=== PATIENT | female | born 1980 | race Caucasian/White ===

== ENCOUNTER 2017-10-17 12:09 | Observation (INO) | payer OTHER ==
[2017-10-17] MEDS ORDERED: NIFEdipine 10 MG Cap PO ONE (14:00)
[2017-10-17] MEDS ORDERED: Azithromycin 250 MG Tab PO ONE (15:30)
[2017-10-17] MEDS ORDERED: Ampicillin 2 GM in Sodium Chloride 0.9% 100 ML IV ONE (15:30)
[2017-10-17] MEDS: Lactated Ringers 1,000 ML IV SCH (15:34)
[2017-10-17] MEDS: Magnesium Sulfate/Water 40 GM/1,000 ML BAG IV SCH (16:17)
--- NOTE | 2017-10-17 17:16 | PCM.LDHP ---
L&D History of Present Illness - General Date of Service: 10/17/17 (high blood pressure) Admit Problem/Dx: Patient Status Order with Admit Dx/Problem 10/17/17 15:14 Patient Status [ADT] Routine Admission Diagnosis/Problem Admission Diagnosis/Problem Hypertension Source of Information: Patient History Limitations: Reports: No Limitations - History of Present Illness Introduction:: This 37 year old presents for swelling and high blood pressure. She was told by Omari Gross to come here. She is 34 3/7 weeks gestation with GDM, hypertension and advanced maternal age. Timing/Duration: Reports: minutes: (4 minutes) Location, : Reports: Other (doesn't feel most of them, has been henna for weeks) Improves with: Reports: None Worsens with: Reports: None - Related Data Allergies/Adverse Reactions: Allergies Allergy/AdvReac Type Severity Reaction Status Date / Time No Known Allergies Allergy Verified 11/02/15 08:47 Home Medications: Home Meds Cetirizine [ZyrTEC] 10 mg PO DAILY 09/26/17 [History] Levothyroxine [Synthroid] 50 mcg PO ACBREAKFAST 09/26/17 [History] Pnv with Ca,No.72/Iron/Fa [Pnv Plus Multivit Tab] 1 tab-cap PO DAILY [History] Ranitidine [Zantac] 150 mg PO DAILY 09/26/17 [History] NIFEdipine [Procardia] 10 mg PO TID 10/13/17 [History] glyBURIDE [Glyburide] 2.5 mg PO BID 10/13/17 [History] Past Medical History : 3 Para: 1 LMP (Approximate): (11/24/17) H&P Review of Systems - Review of Systems: Review Of Systems: See Below General: Reports: Fatigue, Weight Gain HEENT: Reports: No Symptoms Pulmonary: Reports: No Symptoms Cardiovascular: Reports: No Symptoms Gastrointestinal: Reports: No Symptoms Genitourinary: Reports: No Symptoms Musculoskeletal: Reports: No Symptoms Skin: Reports: No Symptoms Psychiatric: Reports: No Symptoms Neurological: Reports: No Symptoms Hematologic/Lymphatic: Reports: No Symptoms Immunologic: Reports: No Symptoms L&D Exam - Exam Exam: See Below - Vital Signs Vital Signs: Last Vital Signs Temp 97.6 F 10/17/17 12:25 Pulse 73 10/17/17 13:40 Resp 16 10/17/17 12:37 BP 171/100 H 10/17/17 14:07 Pulse Ox 96 10/17/17 13:10 - OB Specific Contraction Intensity: Mild Movement: Active Heart Tones: Present Heart Tones per Min: 150 Heart Rate (FHR) Variability: Moderate (6-25 bmp) (initial FHT pattern showed accelerations, cat 1 strip) Presentation: Vertex - Young Score Young Score Cervix Position: Anterior Young Score Consistency: Medium Young Score Effacement: 31-50% Young Score Dilation: 1-2 cm Young Score Infant's Station: -1 ,0 Young Score Total: 7 - Exam Quality Assessment: DVT Prophylaxis General: Alert, Oriented HEENT: PERRLA, Conjunctiva Clear, Hearing Intact, Mucosa Moist & [place], Posterior Pharynx Clear Neck: Supple Lungs: Clear to Auscultation, Normal Respiratory Effort Cardiovascular: Regular Rate, Regular Rhythm GI/Abdominal Exam: Normal Bowel Sounds, Soft Rectal Exam: Normal Exam Genitourinary: Cervical dilitation, Enlarged uterus Back Exam: Normal Inspection Extremities: Normal Inspection, Other (2 plus pitting edema to her thighs) Skin: Warm Neurological: Cranial Nerves Intact, Strength Equal Bilateral, Normal Tone Psychiatric: Alert, Normal Affect, Normal Mood - Patient Data Lab Results Last 24 hrs: Laboratory Results - last 24 hr 10/17/17 10/17/17 10/17/17 Range/Units 12:32 13:55 13:55 WBC 11.3 H (4.5-11.0) K/uL RBC 4.84 (3.30-5.50) M/uL Hgb 14.4 (12.0-15.0) g/dL Hct 41.8 (36.0-48.0) % MCV 86 (80-98) fL MCH 30 (27-31) pg MCHC 34 (32-36) % Plt Count 291 (150-400) K/uL Sodium 138 L (140-148) mmol/L Potassium 3.8 (3.6-5.2) mmol/L Chloride 106 (100-108) mmol/L Carbon Dioxide 20 L (21-32) mmol/L Anion Gap 15.8 H (5.0-14.0) mmol/L BUN 10 (7-18) mg/dL Creatinine 0.7 (0.6-1.0) mg/dL Est Cr Clr Drug Dosing TNP Estimated GFR (MDRD) > 60 (>60) Glucose 72 L (74-106) mg/dL Uric Acid 6.5 H (2.6-6.2) mg/dL Calcium 8.8 (8.5-10.1) mg/dL Total Bilirubin 0.1 L (0.2-1.0) mg/dL AST 18 (15-37) U/L ALT 18 (12-78) U/L Alkaline Phosphatase 140 H (46-116) U/L Lactate Dehydrogenase (82-234) U/L Total Protein 6.6 (6.4-8.2) g/dL Albumin 2.2 L (3.4-5.0) g/dL Globulin 4.4 H (2.3-3.5) g/dL Albumin/Globulin Ratio 0.5 L (1.2-2.2) LDL Cholesterol Direct 121 H (0-100) mg/dL Urine Color Yellow Urine Appearance Slightly cloudy Urine pH 6.5 (4.5-8.0) Ur Specific [place] 1.005 L (1.008-1.030) Urine Protein 30 H (NEGATIVE) mg/dL Urine Glucose (UA) Normal (NEGATIVE) mg/dL Urine Ketones Negative (NEGATIVE) mg/dL Urine Occult Blood Negative (NEGATIVE) Urine Nitrite Negative (NEGATIVE) Urine Bilirubin Negative (NEGATIVE) Urine Urobilinogen Normal (NORMAL) mg/dL Ur Leukocyte Esterase Negative (NEGATIVE) Urine RBC 0-5 (0-5) Urine WBC Not seen (0-5) Ur Epithelial Cells Rare Amorphous Sediment Not seen Urine Bacteria Rare Urine Mucus Not seen 10/17/17 Range/Units 14:57 WBC (4.5-11.0) K/uL RBC (3.30-5.50) M/uL Hgb (12.0-15.0) g/dL Hct (36.0-48.0) % MCV (80-98) fL MCH (27-31) pg MCHC (32-36) % Plt Count (150-400) K/uL Sodium (140-148) mmol/L Potassium (3.6-5.2) mmol/L Chloride (100-108) mmol/L Carbon Dioxide (21-32) mmol/L Anion Gap (5.0-14.0) mmol/L BUN (7-18) mg/dL Creatinine (0.6-1.0) mg/dL Est Cr Clr Drug Dosing Estimated GFR (MDRD) (>60) Glucose (74-106) mg/dL Uric Acid (2.6-6.2) mg/dL Calcium (8.5-10.1) mg/dL Total Bilirubin (0.2-1.0) mg/dL AST (15-37) U/L ALT (12-78) U/L Alkaline Phosphatase (46-116) U/L Lactate Dehydrogenase 186 (82-234) U/L Total Protein (6.4-8.2) g/dL Albumin (3.4-5.0) g/dL Globulin (2.3-3.5) g/dL Albumin/Globulin Ratio (1.2-2.2) LDL Cholesterol Direct (0-100) mg/dL Urine Color Urine Appearance Urine pH (4.5-8.0) Ur Specific [place] (1.008-1.030) Urine Protein (NEGATIVE) mg/dL Urine Glucose (UA) (NEGATIVE) mg/dL Urine Ketones (NEGATIVE) mg/dL Urine Occult Blood (NEGATIVE) Urine Nitrite (NEGATIVE) Urine Bilirubin (NEGATIVE) Urine Urobilinogen (NORMAL) mg/dL Ur Leukocyte Esterase (NEGATIVE) Urine RBC (0-5) Urine WBC (0-5) Ur Epithelial Cells Amorphous Sediment Urine Bacteria Urine Mucus Result Diagrams: 10/17/17 13:55 10/17/17 13:55 - Problem List (1) uterine contractions in third trimester, antepartum SNOMED Code(s): 695691130 ICD Code: O47.03 - FALSE LABOR BEFORE 37 COMPLETED WEEKS OF GEST, THIRD TRI Status: Acute Priority: High Current Visit: Yes (2) Gestational diabetes SNOMED Code(s): 55965722 ICD Code: O24.419 - GESTATIONAL DIABETES MELLITUS IN , UNSP CONTROL Status: Acute Current Visit: Yes Qualifiers: Gestational diabetes mellitus control: unspecified Trimester: third trimester Qualified Code(s): O24.419 - Gestational diabetes mellitus in , unspecified control (3) Hypertension affecting in third trimester SNOMED Code(s): 908457192 ICD Code: O16.3 - UNSPECIFIED MATERNAL HYPERTENSION, THIRD TRIMESTER Status : Acute Priority: High Current Visit: Yes Problem List Initiated/Reviewed/Updated: Yes Orders Last 24hrs: Active Orders 24 hr Category Date Time Status Patient Status [ADT] Routine ADT 10/17/17 15:14 Active Communication Order [RC] Per Unit Routine Care 10/17/17 15:16 Active Notify Provider [RC] PRN Care 10/17/17 15:14 Active OB Check [OM.PC] Click to Edit Care 10/17/17 12:32 Ordered Vital Signs [RC] PER UNIT ROUTINE Care 10/17/17 15:14 Active Consistent Carbohydrate Diet [DIET] Diet 10/17/17 Dinner Active Sodium Restricted Diet [DIET] Diet 10/17/17 Dinner Active BPP wo NST [US] Routine Exams 10/18/17 07:00 Ordered BPP wo NST [US] Urgent Exams 10/17/17 13:44 Taken CBC WITH AUTO DIFF [HEME] AM Lab 10/18/17 05:11 Ordered COMPREHENSIVE METABOLIC PN,CMP [CHEM] AM Lab 10/18/17 05:11 Ordered CREATININE,URINE 24 HR [REF] Routine Lab 10/17/17 13:30 Ordered GLUCOSE POC LAB TO COLLECT [POC] QIDACANDBED Lab 10/17/17 21:00 Ordered GLUCOSE POC LAB TO COLLECT [POC] QIDACANDBED Lab 10/18/17 07:30 Ordered GLUCOSE POC LAB TO COLLECT [POC] QIDACANDBED Lab 10/18/17 11:30 Ordered GLUCOSE POC LAB TO COLLECT [POC] QIDACANDBED Lab 10/18/17 16:30 Ordered GLUCOSE POC LAB TO COLLECT [POC] Stat Lab 10/17/17 16:47 Ordered Ampicillin 1 gm Med 10/17/17 19:30 Active Sodium Chloride 0.9% [Normal Saline] 50 ml IV Q4H Lactated Ringers [Ringers, Lactated] 1,000 ml Med 10/17/17 15:30 Active IV ASDIRECTED Magnesium Sulfate/Water [Magnesium Sulfate 40 GM in Med 10/17/17 15:30 Active Water 1000 ML] 40 gm in 1,000 ml IV .CONTINUOUS NIFEdipine [Procardia] Med 10/17/17 20:00 Active 20 mg PO Q6H Deep Tendon Reflexes [WOMSER] Per Unit Routine Oth 10/17/17 15:16 Ordered Resuscitation Status Routine Resus Stat 10/17/17 15:14 Ordered Medication Orders Ampicillin Sodium 1 gm/ Sodium (Chloride) 50 mls @ 100 mls/hr IV Q4H ROBE Stop: 10/19/17 15:59 Lactated Ringer's (Ringers, Lactated) 1,000 mls @ 125 mls/hr IV ASDIRECTED ROBE Last Admin: 10/17/17 15:34 Dose: 125 mls/hr Magnesium Sulfate (Magnesium Sulfate 40 Gm In Water 1000 Ml) 40 gm in 1,000 mls @ 50 mls/hr IV .CONTINUOUS ROBE PRN Reason: 2 GM/HR Last Admin: 10/17/17 16:17 Dose: 2 gm/hr, 50 mls/hr Nifedipine (Procardia) 20 mg PO Q6H ROBE Assessment/Plan Comment:: 10/17/17 contractions: fluids, Radha normal BPP 6/10 no tone or movement during US. CE dilation 1 cm. Will try to slow these and present cervical change. repeat US with cervical length in AM Getting Nifidepine, increased to dose to 20 mg every 6 hours for both contractions and blood pressure. Hypertension 177/104, no symptoms other then 12 pound weight gain and edema, which brought her in today. Labs today negative for Hellp syndrome. 24 hour urine for protein started at 1230 today. She had a small amount of protein which has been there for several weeks. covering with mag sulfate 4 gm bolus and 2 gm drip covered for GBS and other organisms as well, Ampicillin and Zithromycin. GDM well controlled continue same with Glyburide 2.5 mg BID Found GBS from 09/27/17 and was negative, will stop antibiotics tomorrow repeat CBC, CMP in am finish 24 hour urine US with cerivcal length in am
[2017-10-17] MEDS ORDERED: Zolpidem 5 MG Tab PO ONE ×2 (17:47→21:00)
[2017-10-17] MEDS: NIFEdipine 10 MG Cap PO SCH (20:04)
[2017-10-17] MEDS: Ampicillin 1 GM in Sodium Chloride 0.9% 50 ML IV SCH ×2 (20:04→23:03)
[2017-10-18] MEDS: Lactated Ringers 1,000 ML IV SCH ×2 (01:05→09:42)
[2017-10-18] MEDS: Acetaminophen 500 MG Tab PO PRN ×2 (01:19→06:51)
[2017-10-18] MEDS: NIFEdipine 10 MG Cap PO SCH ×2 (02:05→08:12)
[2017-10-18] MEDS: Ampicillin 1 GM in Sodium Chloride 0.9% 50 ML IV SCH ×2 (04:07→07:57)
--- NOTE | 2017-10-18 08:36 | PCM.PN ---
- General Info Date of Service: 10/18/17 (hypertension) Admission Dx/Problem (Free Text): Patient Status Order with Admit Dx/Problem 10/17/17 15:14 Patient Status [ADT] Routine Admission Diagnosis/Problem Admission Diagnosis/Problem Hypertension Functional Status: Reports: Pain Controlled - Review of Systems General: Reports: Fatigue HEENT: Reports: Headaches Pulmonary: Reports: No Symptoms Cardiovascular: Reports: Edema (legs to thighs and arms, not as swollen as yesterday) Gastrointestinal: Reports: Other (heartburn) Genitourinary: Reports: No Symptoms Musculoskeletal: Reports: No Symptoms Skin: Reports: No Symptoms Neurological: Reports: No Symptoms Psychiatric: Reports: No Symptoms - Patient Data Vitals - Most Recent: Last Vital Signs Temp 97.2 F 10/18/17 07:50 Pulse 85 10/18/17 08:00 Resp 16 10/18/17 08:00 BP 146/92 H 10/18/17 08:12 Pulse Ox 99 10/18/17 08:00 Weight - Most Recent: 236 lb I&O - Last 24 Hours: Intake & Output 10/17/17 10/18/17 10/18/17 22:59 06:59 14:59 Intake Total 1200 1640 2253 Output Total 2350 1600 900 Balance -1150 40 1353 Lab Results Last 24 Hours: Laboratory Results - last 24 hr 10/17/17 10/17/17 10/17/17 Range/Units 12:32 13:55 13:55 WBC 11.3 H (4.5-11.0) K/uL RBC 4.84 (3.30-5.50) M/uL Hgb 14.4 (12.0-15.0) g/dL Hct 41.8 (36.0-48.0) % MCV 86 (80-98) fL MCH 30 (27-31) pg MCHC 34 (32-36) % Plt Count 291 (150-400) K/uL Neut % (Auto) (36-66) % Lymph % (Auto) (24-44) % [place] % (Auto) (2-6) % Eos % (Auto) (2-4) % Baso % (Auto) (0-1) % Sodium 138 L (140-148) mmol/L Potassium 3.8 (3.6-5.2) mmol/L Chloride 106 (100-108) mmol/L Carbon Dioxide 20 L (21-32) mmol/L Anion Gap 15.8 H (5.0-14.0) mmol/L BUN 10 (7-18) mg/dL Creatinine 0.7 (0.6-1.0) mg/dL Est Cr Clr Drug Dosing TNP Estimated GFR (MDRD) > 60 (>60) Glucose 72 L (74-106) mg/dL Uric Acid 6.5 H (2.6-6.2) mg/dL Calcium 8.8 (8.5-10.1) mg/dL Magnesium (1.8-2.4) mg/dL Total Bilirubin 0.1 L (0.2-1.0) mg/dL AST 18 (15-37) U/L ALT 18 (12-78) U/L Alkaline Phosphatase 140 H (46-116) U/L Lactate Dehydrogenase (82-234) U/L Total Protein 6.6 (6.4-8.2) g/dL Albumin 2.2 L (3.4-5.0) g/dL Globulin 4.4 H (2.3-3.5) g/dL Albumin/Globulin Ratio 0.5 L (1.2-2.2) LDL Cholesterol Direct 121 H (0-100) mg/dL Urine Color Yellow Urine Appearance Slightly cloudy Urine pH 6.5 (4.5-8.0) Ur Specific [place] 1.005 L (1.008-1.030) Urine Protein 30 H (NEGATIVE) mg/dL Urine Glucose (UA) Normal (NEGATIVE) mg/dL Urine Ketones Negative (NEGATIVE) mg/dL Urine Occult Blood Negative (NEGATIVE) Urine Nitrite Negative (NEGATIVE) Urine Bilirubin Negative (NEGATIVE) Urine Urobilinogen Normal (NORMAL) mg/dL Ur Leukocyte Esterase Negative (NEGATIVE) Urine RBC 0-5 (0-5) Urine WBC Not seen (0-5) Ur Epithelial Cells Rare Amorphous Sediment Not seen Urine Bacteria Rare Urine Mucus Not seen 10/17/17 10/17/17 10/17/17 Range/Units 14:57 17:51 20:57 WBC (4.5-11.0) K/uL RBC (3.30-5.50) M/uL Hgb (12.0-15.0) g/dL Hct (36.0-48.0) % MCV (80-98) fL MCH (27-31) pg MCHC (32-36) % Plt Count (150-400) K/uL Neut % (Auto) (36-66) % Lymph % (Auto) (24-44) % [place] % (Auto) (2-6) % Eos % (Auto) (2-4) % Baso % (Auto) (0-1) % Sodium (140-148) mmol/L Potassium (3.6-5.2) mmol/L Chloride (100-108) mmol/L Carbon Dioxide (21-32) mmol/L Anion Gap (5.0-14.0) mmol/L BUN (7-18) mg/dL Creatinine (0.6-1.0) mg/dL Est Cr Clr Drug Dosing Estimated GFR (MDRD) (>60) Glucose (74-106) mg/dL Uric Acid (2.6-6.2) mg/dL Calcium (8.5-10.1) mg/dL Magnesium 1.7 L 4.2 H D (1.8-2.4) mg/dL Total Bilirubin (0.2-1.0) mg/dL AST (15-37) U/L ALT (12-78) U/L Alkaline Phosphatase (46-116) U/L Lactate Dehydrogenase 186 (82-234) U/L Total Protein (6.4-8.2) g/dL Albumin (3.4-5.0) g/dL Globulin (2.3-3.5) g/dL Albumin/Globulin Ratio (1.2-2.2) LDL Cholesterol Direct (0-100) mg/dL Urine Color Urine Appearance Urine pH (4.5-8.0) Ur Specific [place] (1.008-1.030) Urine Protein (NEGATIVE) mg/dL Urine Glucose (UA) (NEGATIVE) mg/dL Urine Ketones (NEGATIVE) mg/dL Urine Occult Blood (NEGATIVE) Urine Nitrite (NEGATIVE) Urine Bilirubin (NEGATIVE) Urine Urobilinogen (NORMAL) mg/dL Ur Leukocyte Esterase (NEGATIVE) Urine RBC (0-5) Urine WBC (0-5) Ur Epithelial Cells Amorphous Sediment Urine Bacteria Urine Mucus 10/18/17 10/18/17 10/18/17 Range/Units 00:15 04:20 05:55 WBC 10.1 (4.5-11.0) K/uL RBC 4.27 (3.30-5.50) M/uL Hgb 12.7 (12.0-15.0) g/dL Hct 37.3 (36.0-48.0) % MCV 87 (80-98) fL MCH 30 (27-31) pg MCHC 34 (32-36) % Plt Count 238 (150-400) K/uL Neut % (Auto) 77 H (36-66) % Lymph % (Auto) 16 L (24-44) % [place] % (Auto) 6 (2-6) % Eos % (Auto) 0 L (2-4) % Baso % (Auto) 0 (0-1) % Sodium (140-148) mmol/L Potassium (3.6-5.2) mmol/L Chloride (100-108) mmol/L Carbon Dioxide (21-32) mmol/L Anion Gap (5.0-14.0) mmol/L BUN (7-18) mg/dL Creatinine (0.6-1.0) mg/dL Est Cr Clr Drug Dosing Estimated GFR (MDRD) (>60) Glucose (74-106) mg/dL Uric Acid (2.6-6.2) mg/dL Calcium (8.5-10.1) mg/dL Magnesium 4.5 H 5.0 H (1.8-2.4) mg/dL Total Bilirubin (0.2-1.0) mg/dL AST (15-37) U/L ALT (12-78) U/L Alkaline Phosphatase (46-116) U/L Lactate Dehydrogenase (82-234) U/L Total Protein (6.4-8.2) g/dL Albumin (3.4-5.0) g/dL Globulin (2.3-3.5) g/dL Albumin/Globulin Ratio (1.2-2.2) LDL Cholesterol Direct (0-100) mg/dL Urine Color Urine Appearance Urine pH (4.5-8.0) Ur Specific [place] (1.008-1.030) Urine Protein (NEGATIVE) mg/dL Urine Glucose (UA) (NEGATIVE) mg/dL Urine Ketones (NEGATIVE) mg/dL Urine Occult Blood (NEGATIVE) Urine Nitrite (NEGATIVE) Urine Bilirubin (NEGATIVE) Urine Urobilinogen (NORMAL) mg/dL Ur Leukocyte Esterase (NEGATIVE) Urine RBC (0-5) Urine WBC (0-5) Ur Epithelial Cells Amorphous Sediment Urine Bacteria Urine Mucus 10/18/17 10/18/17 Range/Units 05:55 08:05 WBC (4.5-11.0) K/uL RBC (3.30-5.50) M/uL Hgb (12.0-15.0) g/dL Hct (36.0-48.0) % MCV (80-98) fL MCH (27-31) pg MCHC (32-36) % Plt Count (150-400) K/uL Neut % (Auto) (36-66) % Lymph % (Auto) (24-44) % [place] % (Auto) (2-6) % Eos % (Auto) (2-4) % Baso % (Auto) (0-1) % Sodium 135 L (140-148) mmol/L Potassium 4.0 (3.6-5.2) mmol/L Chloride 105 (100-108) mmol/L Carbon Dioxide 18 L (21-32) mmol/L Anion Gap 16.0 H (5.0-14.0) mmol/L BUN 11 (7-18) mg/dL Creatinine 0.7 (0.6-1.0) mg/dL Est Cr Clr Drug Dosing 92.79 Estimated GFR (MDRD) > 60 (>60) Glucose 115 H (74-106) mg/dL Uric Acid (2.6-6.2) mg/dL Calcium 7.8 L (8.5-10.1) mg/dL Magnesium 5.4 H (1.8-2.4) mg/dL Total Bilirubin 0.2 D (0.2-1.0) mg/dL AST 17 (15-37) U/L ALT 17 (12-78) U/L Alkaline Phosphatase 119 H (46-116) U/L Lactate Dehydrogenase (82-234) U/L Total Protein 5.4 L (6.4-8.2) g/dL Albumin 1.7 L (3.4-5.0) g/dL Globulin 3.7 H (2.3-3.5) g/dL Albumin/Globulin Ratio 0.5 L (1.2-2.2) LDL Cholesterol Direct (0-100) mg/dL Urine Color Urine Appearance Urine pH (4.5-8.0) Ur Specific [place] (1.008-1.030) Urine Protein (NEGATIVE) mg/dL Urine Glucose (UA) (NEGATIVE) mg/dL Urine Ketones (NEGATIVE) mg/dL Urine Occult Blood (NEGATIVE) Urine Nitrite (NEGATIVE) Urine Bilirubin (NEGATIVE) Urine Urobilinogen (NORMAL) mg/dL Ur Leukocyte Esterase (NEGATIVE) Urine RBC (0-5) Urine WBC (0-5) Ur Epithelial Cells Amorphous Sediment Urine Bacteria Urine Mucus Med Orders - Current: Current Medications Acetaminophen (Tylenol Extra Strength) 1,000 mg PO Q4H PRN PRN Reason: Headache Last Admin: 10/18/17 06:51 Dose: 1,000 mg Glyburide (Micronase) 2.5 mg PO BIDMEALS [facility] Last Admin: 10/18/17 08:12 Dose: 2.5 mg Lactated Ringer's (Ringers, Lactated) 1,000 mls @ 125 mls/hr IV ASDIRECTED [facility] Last Admin: 10/18/17 01:05 Dose: 125 mls/hr Magnesium Sulfate (Magnesium Sulfate 40 Gm In Water 1000 Ml) 40 gm in 1,000 mls @ 50 mls/hr IV .CONTINUOUS [facility] PRN Reason: 2 GM/HR Last Admin: 10/17/17 16:17 Dose: 2 gm/hr, 50 mls/hr Nifedipine (Procardia) 20 mg PO Q6H [facility] Last Admin: 10/18/17 08:12 Dose: 20 mg Discontinued Medications Azithromycin (Zithromax) 500 mg PO ONETIME ONE Stop: 10/17/17 15:31 Last Admin: 10/17/17 16:24 Dose: 500 mg Ampicillin Sodium 2 gm/ Sodium (Chloride) 100 mls @ 200 mls/hr IV ONETIME ONE Stop: 10/17/17 15:59 Last Admin: 10/17/17 16:22 Dose: 200 mls/hr Ampicillin Sodium 1 gm/ Sodium (Chloride) 50 mls @ 100 mls/hr IV Q4H [facility] Stop: 10/19/17 15:59 Last Admin: 10/18/17 07:57 Dose: Not Given Magnesium Sulfate 4 gm/ Sodium (Chloride) 108 mls @ 400 mls/hr IV ONETIME ONE Stop: 10/17/17 16:16 Last Admin: 10/17/17 15:54 Dose: 400 mls/hr Nifedipine (Procardia) 20 mg PO ONETIME ONE Stop: 10/17/17 14:01 Last Admin: 10/17/17 14:07 Dose: 20 mg Zolpidem Tartrate (Ambien) 10 mg PO ONETIME ONE Stop: 10/17/17 17:48 Last Admin: 10/17/17 21:49 Dose: Not Given Zolpidem Tartrate (Ambien) 10 mg PO ONETIME ONE Stop: 10/17/17 21:01 Last Admin: 10/17/17 21:49 Dose: Not Given - Exam Quality Assessment: DVT Prophylaxis General: Alert, Oriented, Cooperative HEENT: Pupils Equal Neck: Supple Lungs: Clear to Auscultation, Normal Respiratory Effort Cardiovascular: Regular Rate (has a flow murmur) GI/Abdominal Exam: Normal Bowel Sounds, Soft (Female) Exam: Normal External Exam, Enlarged Uterus Back Exam: Normal Inspection, Full Range of Motion (the pitting edema has improved, continues to be swollen) Peripheral Pulses: 2+: Femoral (R), Popliteal (L) Skin: Warm, Dry Neurological: No New Focal Deficit Psy/Mental Status: Alert, Normal Affect, Normal Mood - Problem List & Annotations (1) uterine contractions in third trimester, antepartum SNOMED Code(s): 993009730 Code(s): O47.03 - FALSE LABOR BEFORE 37 COMPLETED WEEKS OF GEST, THIRD TRI Status: Acute Priority: High Current Visit: Yes (2) Gestational diabetes SNOMED Code(s): 14548968 Code(s): O24.419 - GESTATIONAL DIABETES MELLITUS IN , UNSP CONTROL Status: Acute Priority: Medium Current Visit: Yes Qualifiers: Gestational diabetes mellitus control: unspecified Trimester: third trimester Qualified Code(s): O24.419 - Gestational diabetes mellitus in , unspecified control (3) Hypertension affecting in third trimester SNOMED Code(s): 750730409 Code(s): O16.3 - UNSPECIFIED MATERNAL HYPERTENSION, THIRD TRIMESTER Status : Acute Priority: High Current Visit: Yes - Problem List Review Problem List Initiated/Reviewed/Updated: Yes - My Orders Last 24 Hours: My Active Orders 10/17/17 12:32 OB Check [OM.PC] Click to Edit 10/17/17 13:30 CREATININE,URINE 24 HR [REF] Routine 12/26/17 13:44 BPP wo NST [US] Urgent 10/17/17 15:14 Patient Status [ADT] Routine Notify Provider [RC] PRN Vital Signs [RC] Q30M Resuscitation Status Routine 10/17/17 15:16 Communication Order [RC] Per Unit Routine Deep Tendon Reflexes [WOMSER] Per Unit Routine 10/17/17 15:30 Lactated Ringers [Ringers, Lactated] 1,000 ml IV ASDIRECTED Magnesium Sulfate/Water [Magnesium Sulfate 40 GM in Water 1000 ML] 40 gm in 1, 000 ml IV .CONTINUOUS 10/17/17 17:45 glyBURIDE [Micronase] 2.5 mg PO BIDMEALS 10/17/17 17:49 Incentive Spirometry [RT Incentive Spirometry] [RC] ASDIRECTED 10/17/17 20:00 NIFEdipine [Procardia] 20 mg PO Q6H 10/17/17 Dinner Consistent Carbohydrate Diet [DIET] Sodium Restricted Diet [DIET] 10/18/17 OB Transvaginal [US] Routine 10/18/17 01:13 Acetaminophen [Tylenol Extra Strength] 1,000 mg PO Q4H PRN 10/18/17 07:00 BPP wo NST [US] Routine 10/18/17 11:30 GLUCOSE POC LAB TO COLLECT [POC] QIDACANDBED 10/18/17 12:00 MAGNESIUM [CHEM] Q4H 10/18/17 16:30 GLUCOSE POC LAB TO COLLECT [POC] QIDACANDBED - Assessment Assessment:: 10/18/17 37 yr old , MARU 11/24/17, 34 4/. hypertension, whether this is chronic or superimposed will be determined, But had become severe yesterday with 10 pound weight gain over the past week. Along with proteinuria and generally not feeling well. The increased dose of Procardia has decreased her blood pressure. the Procardia 20 every 6 hours and the Mag sulfate 2gm drip have also decreased her contractions to one every 8-10 minutes. no cervical change since yesterday and US showed cervical length at 3.2 cm this morning BPP improved with fluids and rest and this morning was 8/8, yesterday 6/10. [place]IRAG 17.3 GDM has been controlled with glyburide 2.5 mg BID, AM this morning fasting was 115 PLT 291 yesterday and 238 this morning. 24 hour urine pending and will be done at 1230 today. This morning has a headache and indigestion - Plan Plan:: 10/17/17 contractions: fluids, Chirag normal BPP 6/10 no tone or movement during US. CE dilation 1 cm. Will try to slow these and present cervical change. repeat US with cervical length in AM Getting Nifidepine, increased to dose to 20 mg every 6 hours for both contractions and blood pressure. Hypertension 177/104, no symptoms other then 12 pound weight gain and edema, which brought her in today. Labs today negative for Hellp syndrome. 24 hour urine for protein started at 1230 today. She had a small amount of protein which has been there for several weeks. covering with mag sulfate 4 gm bolus and 2 gm drip covered for GBS and other organisms as well, Ampicillin and Zithromycin. GDM well controlled continue same with Glyburide 2.5 mg BID Found GBS from 09/27/17 and was negative, will stop antibiotics tomorrow repeat CBC, CMP in am finish 24 hour urine US with cerivcal length in am 10/18/17 Called [facility] and will transfer to higher level of care to Dr. Melisa Zuniga Ultrasounds pushed with PACS 24 hour urine to go with her ACLS with L&D RN to accompany.
--- NOTE | 2017-10-18 09:02 | PCM.DCSUM1 ---
Discharge Summary - Hospital Course Free Text/Narrative:: 37 year old 34 4/7 weeks MARU 11/24/17 with increasing problems with hypertension and swelling. Stabilized with increased dose of Procardia and Mag Sulfate. Initially treated for unknown GBS status but a GBS culture was found from and was negative, antibodies discontinued this morning this morning. 24 hour urine for protein being collected. Blood pressure has improved, contractions have slowed and no cervical change. Swelling continues, now has headache and indigestion. Labs stable at this time PLT drifting down but remain within normal limits. - Discharge Data Discharge Date: 10/18/17 Discharge Disposition: DC/Tfer to Acute Hospital 02 Condition: Fair - Discharge Diagnosis/Problem(s) (1) uterine contractions in third trimester, antepartum SNOMED Code(s): 759958387 ICD Code: O47.03 - FALSE LABOR BEFORE 37 COMPLETED WEEKS OF GEST, THIRD TRI Status: Acute Priority: High Current Visit: Yes (2) Gestational diabetes SNOMED Code(s): 75880955 ICD Code: O24.419 - GESTATIONAL DIABETES MELLITUS IN , UNSP CONTROL Status: Acute Priority: Medium Current Visit: Yes Qualifiers: Gestational diabetes mellitus control: unspecified Trimester: third trimester Qualified Code(s): O24.419 - Gestational diabetes mellitus in , unspecified control (3) Hypertension affecting in third trimester SNOMED Code(s): 388931222 ICD Code: O16.3 - UNSPECIFIED MATERNAL HYPERTENSION, THIRD TRIMESTER Status : Acute Priority: High Current Visit: Yes - Patient Summary/Data Hospital Course: Improved blood pressure and decreased contractions, stable for transport to higher level of care. - Patient Instructions Diet: Diabetic Diet Activity: Bedrest, May Use Bathroom - Discharge Plan Home Medications: Home Meds Cetirizine [ZyrTEC] 10 mg PO DAILY 09/26/17 [History] Levothyroxine [Synthroid] 50 mcg PO ACBREAKFAST 09/26/17 [History] Pnv with Ca,No.72/Iron/Fa [Pnv Plus Multivit Tab] 1 tab-cap PO DAILY [History] Ranitidine [Zantac] 150 mg PO DAILY 09/26/17 [History] NIFEdipine [Procardia] 10 mg PO TID 10/13/17 [History] glyBURIDE [Glyburide] 2.5 mg PO BID 10/13/17 [History] - Discharge Summary/Plan Comment DC Time >30 min.: Yes Discharge Summary/Plan Comment: Transferred to [facility] Dr. Melisa Zuniga for further evaluation and treatment - Patient Data Vitals - Most Recent: Last Vital Signs Temp 97.2 F 10/18/17 07:50 Pulse 85 10/18/17 08:00 Resp 16 10/18/17 08:00 BP 146/92 H 10/18/17 08:12 Pulse Ox 99 10/18/17 08:00 Weight - Most Recent: 236 lb I&O - Last 24 hours: Intake & Output 10/17/17 10/18/17 10/18/17 22:59 06:59 14:59 Intake Total 1200 1640 2253 Output Total 2350 1600 900 Balance -1150 40 1353 Lab Results - Last 24 hrs: Laboratory Results - last 24 hr 10/17/17 10/17/17 10/17/17 Range/Units 12:32 13:55 13:55 WBC 11.3 H (4.5-11.0) K/uL RBC 4.84 (3.30-5.50) M/uL Hgb 14.4 (12.0-15.0) g/dL Hct 41.8 (36.0-48.0) % MCV 86 (80-98) fL MCH 30 (27-31) pg MCHC 34 (32-36) % Plt Count 291 (150-400) K/uL Neut % (Auto) (36-66) % Lymph % (Auto) (24-44) % [place] % (Auto) (2-6) % Eos % (Auto) (2-4) % Baso % (Auto) (0-1) % Sodium 138 L (140-148) mmol/L Potassium 3.8 (3.6-5.2) mmol/L Chloride 106 (100-108) mmol/L Carbon Dioxide 20 L (21-32) mmol/L Anion Gap 15.8 H (5.0-14.0) mmol/L BUN 10 (7-18) mg/dL Creatinine 0.7 (0.6-1.0) mg/dL Est Cr Clr Drug Dosing TNP Estimated GFR (MDRD) > 60 (>60) Glucose 72 L (74-106) mg/dL Uric Acid 6.5 H (2.6-6.2) mg/dL Calcium 8.8 (8.5-10.1) mg/dL Magnesium (1.8-2.4) mg/dL Total Bilirubin 0.1 L (0.2-1.0) mg/dL AST 18 (15-37) U/L ALT 18 (12-78) U/L Alkaline Phosphatase 140 H (46-116) U/L Lactate Dehydrogenase (82-234) U/L Total Protein 6.6 (6.4-8.2) g/dL Albumin 2.2 L (3.4-5.0) g/dL Globulin 4.4 H (2.3-3.5) g/dL Albumin/Globulin Ratio 0.5 L (1.2-2.2) LDL Cholesterol Direct 121 H (0-100) mg/dL Urine Color Yellow Urine Appearance Slightly cloudy Urine pH 6.5 (4.5-8.0) Ur Specific Roby 1.005 L (1.008-1.030) Urine Protein 30 H (NEGATIVE) mg/dL Urine Glucose (UA) Normal (NEGATIVE) mg/dL Urine Ketones Negative (NEGATIVE) mg/dL Urine Occult Blood Negative (NEGATIVE) Urine Nitrite Negative (NEGATIVE) Urine Bilirubin Negative (NEGATIVE) Urine Urobilinogen Normal (NORMAL) mg/dL Ur Leukocyte Esterase Negative (NEGATIVE) Urine RBC 0-5 (0-5) Urine WBC Not seen (0-5) Ur Epithelial Cells Rare Amorphous Sediment Not seen Urine Bacteria Rare Urine Mucus Not seen 10/17/17 10/17/17 10/17/17 Range/Units 14:57 17:51 20:57 WBC (4.5-11.0) K/uL RBC (3.30-5.50) M/uL Hgb (12.0-15.0) g/dL Hct (36.0-48.0) % MCV (80-98) fL MCH (27-31) pg MCHC (32-36) % Plt Count (150-400) K/uL Neut % (Auto) (36-66) % Lymph % (Auto) (24-44) % [place] % (Auto) (2-6) % Eos % (Auto) (2-4) % Baso % (Auto) (0-1) % Sodium (140-148) mmol/L Potassium (3.6-5.2) mmol/L Chloride (100-108) mmol/L Carbon Dioxide (21-32) mmol/L Anion Gap (5.0-14.0) mmol/L BUN (7-18) mg/dL Creatinine (0.6-1.0) mg/dL Est Cr Clr Drug Dosing Estimated GFR (MDRD) (>60) Glucose (74-106) mg/dL Uric Acid (2.6-6.2) mg/dL Calcium (8.5-10.1) mg/dL Magnesium 1.7 L 4.2 H D (1.8-2.4) mg/dL Total Bilirubin (0.2-1.0) mg/dL AST (15-37) U/L ALT (12-78) U/L Alkaline Phosphatase (46-116) U/L Lactate Dehydrogenase 186 (82-234) U/L Total Protein (6.4-8.2) g/dL Albumin (3.4-5.0) g/dL Globulin (2.3-3.5) g/dL Albumin/Globulin Ratio (1.2-2.2) LDL Cholesterol Direct (0-100) mg/dL Urine Color Urine Appearance Urine pH (4.5-8.0) Ur Specific Roby (1.008-1.030) Urine Protein (NEGATIVE) mg/dL Urine Glucose (UA) (NEGATIVE) mg/dL Urine Ketones (NEGATIVE) mg/dL Urine Occult Blood (NEGATIVE) Urine Nitrite (NEGATIVE) Urine Bilirubin (NEGATIVE) Urine Urobilinogen (NORMAL) mg/dL Ur Leukocyte Esterase (NEGATIVE) Urine RBC (0-5) Urine WBC (0-5) Ur Epithelial Cells Amorphous Sediment Urine Bacteria Urine Mucus 10/18/17 10/18/17 10/18/17 Range/Units 00:15 04:20 05:55 WBC 10.1 (4.5-11.0) K/uL RBC 4.27 (3.30-5.50) M/uL Hgb 12.7 (12.0-15.0) g/dL Hct 37.3 (36.0-48.0) % MCV 87 (80-98) fL MCH 30 (27-31) pg MCHC 34 (32-36) % Plt Count 238 (150-400) K/uL Neut % (Auto) 77 H (36-66) % Lymph % (Auto) 16 L (24-44) % [place] % (Auto) 6 (2-6) % Eos % (Auto) 0 L (2-4) % Baso % (Auto) 0 (0-1) % Sodium (140-148) mmol/L Potassium (3.6-5.2) mmol/L Chloride (100-108) mmol/L Carbon Dioxide (21-32) mmol/L Anion Gap (5.0-14.0) mmol/L BUN (7-18) mg/dL Creatinine (0.6-1.0) mg/dL Est Cr Clr Drug Dosing Estimated GFR (MDRD) (>60) Glucose (74-106) mg/dL Uric Acid (2.6-6.2) mg/dL Calcium (8.5-10.1) mg/dL Magnesium 4.5 H 5.0 H (1.8-2.4) mg/dL Total Bilirubin (0.2-1.0) mg/dL AST (15-37) U/L ALT (12-78) U/L Alkaline Phosphatase (46-116) U/L Lactate Dehydrogenase (82-234) U/L Total Protein (6.4-8.2) g/dL Albumin (3.4-5.0) g/dL Globulin (2.3-3.5) g/dL Albumin/Globulin Ratio (1.2-2.2) LDL Cholesterol Direct (0-100) mg/dL Urine Color Urine Appearance Urine pH (4.5-8.0) Ur Specific Roby (1.008-1.030) Urine Protein (NEGATIVE) mg/dL Urine Glucose (UA) (NEGATIVE) mg/dL Urine Ketones (NEGATIVE) mg/dL Urine Occult Blood (NEGATIVE) Urine Nitrite (NEGATIVE) Urine Bilirubin (NEGATIVE) Urine Urobilinogen (NORMAL) mg/dL Ur Leukocyte Esterase (NEGATIVE) Urine RBC (0-5) Urine WBC (0-5) Ur Epithelial Cells Amorphous Sediment Urine Bacteria Urine Mucus 10/18/17 10/18/17 Range/Units 05:55 08:05 WBC (4.5-11.0) K/uL RBC (3.30-5.50) M/uL Hgb (12.0-15.0) g/dL Hct (36.0-48.0) % MCV (80-98) fL MCH (27-31) pg MCHC (32-36) % Plt Count (150-400) K/uL Neut % (Auto) (36-66) % Lymph % (Auto) (24-44) % [place] % (Auto) (2-6) % Eos % (Auto) (2-4) % Baso % (Auto) (0-1) % Sodium 135 L (140-148) mmol/L Potassium 4.0 (3.6-5.2) mmol/L Chloride 105 (100-108) mmol/L Carbon Dioxide 18 L (21-32) mmol/L Anion Gap 16.0 H (5.0-14.0) mmol/L BUN 11 (7-18) mg/dL Creatinine 0.7 (0.6-1.0) mg/dL Est Cr Clr Drug Dosing 92.79 Estimated GFR (MDRD) > 60 (>60) Glucose 115 H (74-106) mg/dL Uric Acid (2.6-6.2) mg/dL Calcium 7.8 L (8.5-10.1) mg/dL Magnesium 5.4 H (1.8-2.4) mg/dL Total Bilirubin 0.2 D (0.2-1.0) mg/dL AST 17 (15-37) U/L ALT 17 (12-78) U/L Alkaline Phosphatase 119 H (46-116) U/L Lactate Dehydrogenase (82-234) U/L Total Protein 5.4 L (6.4-8.2) g/dL Albumin 1.7 L (3.4-5.0) g/dL Globulin 3.7 H (2.3-3.5) g/dL Albumin/Globulin Ratio 0.5 L (1.2-2.2) LDL Cholesterol Direct (0-100) mg/dL Urine Color Urine Appearance Urine pH (4.5-8.0) Ur Specific Roby (1.008-1.030) Urine Protein (NEGATIVE) mg/dL Urine Glucose (UA) (NEGATIVE) mg/dL Urine Ketones (NEGATIVE) mg/dL Urine Occult Blood (NEGATIVE) Urine Nitrite (NEGATIVE) Urine Bilirubin (NEGATIVE) Urine Urobilinogen (NORMAL) mg/dL Ur Leukocyte Esterase (NEGATIVE) Urine RBC (0-5) Urine WBC (0-5) Ur Epithelial Cells Amorphous Sediment Urine Bacteria Urine Mucus Med Orders - Current: Current Medications Acetaminophen (Tylenol Extra Strength) 1,000 mg PO Q4H PRN PRN Reason: Headache Last Admin: 10/18/17 06:51 Dose: 1,000 mg Glyburide (Micronase) 2.5 mg PO BIDMEALS [facility] Last Admin: 10/18/17 08:12 Dose: 2.5 mg Lactated Ringer's (Ringers, Lactated) 1,000 mls @ 125 mls/hr IV ASDIRECTED [facility] Last Admin: 10/18/17 01:05 Dose: 125 mls/hr Magnesium Sulfate (Magnesium Sulfate 40 Gm In Water 1000 Ml) 40 gm in 1,000 mls @ 50 mls/hr IV .CONTINUOUS [facility] PRN Reason: 2 GM/HR Last Admin: 10/17/17 16:17 Dose: 2 gm/hr, 50 mls/hr Nifedipine (Procardia) 20 mg PO Q6H [facility] Last Admin: 10/18/17 08:12 Dose: 20 mg Discontinued Medications Azithromycin (Zithromax) 500 mg PO ONETIME ONE Stop: 10/17/17 15:31 Last Admin: 10/17/17 16:24 Dose: 500 mg Ampicillin Sodium 2 gm/ Sodium (Chloride) 100 mls @ 200 mls/hr IV ONETIME ONE Stop: 10/17/17 15:59 Last Admin: 10/17/17 16:22 Dose: 200 mls/hr Ampicillin Sodium 1 gm/ Sodium (Chloride) 50 mls @ 100 mls/hr IV Q4H [facility] Stop: 10/19/17 15:59 Last Admin: 10/18/17 07:57 Dose: Not Given Magnesium Sulfate 4 gm/ Sodium (Chloride) 108 mls @ 400 mls/hr IV ONETIME ONE Stop: 10/17/17 16:16 Last Admin: 10/17/17 15:54 Dose: 400 mls/hr Nifedipine (Procardia) 20 mg PO ONETIME ONE Stop: 10/17/17 14:01 Last Admin: 10/17/17 14:07 Dose: 20 mg Zolpidem Tartrate (Ambien) 10 mg PO ONETIME ONE Stop: 10/17/17 17:48 Last Admin: 10/17/17 21:49 Dose: Not Given Zolpidem Tartrate (Ambien) 10 mg PO ONETIME ONE Stop: 10/17/17 21:01 Last Admin: 10/17/17 21:49 Dose: Not Given *Q Meaningful Use (DIS) - VTE *Q VTE Criteria *Q: - Stroke *Q Stroke Criteria *Q: - AMI *Q AMI Criteria *Q:
--- NOTE | 2017-10-18 09:03 | US ---
BPP wo NST INDICATION: assess CHIRAG, hypertension FINDINGS: Single live IUP. Biophysical profile score 4/8. No points were given for gross body movemen t or tone. heart rate measures 149 bpm. CHIRAG measures 17.4 cm. IMPRESSION: Biophysical profile score 4/8. Results given to Lata Sow by the thermal cutting tracer machine operator on 10/17/2017.
--- NOTE | 2017-10-18 09:04 | US ---
OB Transvaginal, BPP wo NST INDICATION: CX LENGHT. FINDINGS: Single live IUP. Biophysical profile score 8/8. heart rate measures 147 bpm. CHIRAG velasquez sures 17 cm. Cervix is closed and measures 3.0 cm in length with fundal pressure. IMPRESSION: Biophysical profile score 8/8. Cervix measures 3.0 cm with fundal pressure in length and is closed.
[2017-10-18] MEDS: Magnesium Sulfate/Water 40 GM/1,000 ML BAG IV SCH (09:39)
== END 2017-10-18 12:00 ==
LOC: JP.OBCHECK 12:09 → JP.OB 15:03
PROVIDERS: ADMIT Nurse Practitioner Family; ATTEND Nurse Practitioner Family
DX: O09.93 Supervision of high risk pregnancy, unspecified, third trimester (principal); O47.03 False labor before 37 completed weeks of gestation, third trimester; O24.419 Gestational diabetes mellitus in pregnancy, unspecified control; O16.3 Unspecified maternal hypertension, third trimester; Z79.899 Other long term (current) drug therapy; Z3A.34 34 weeks gestation of pregnancy
CPT/HCPCS: 36415; 76817; 76819; 80053; 81001; 82962; 83615; 83721; 83735; 84550; 85025; 85027; 96365; 96366; 96367; 96376; 99211; A9270; G0378; J0290; J3475; J7030; J7050; J7120